=== PATIENT | male | born 1985 | race Caucasian/White ===

== ENCOUNTER 2023-11-18 19:12 | Emergency (ER) | payer MEDICAID, OTHER ==
[2023-11-17] MEDS: ONDANSETRON HCL 4MG/2ML INJ IV NR (23:00)
[2023-11-17] MEDS: PROPOFOL 200MG/20ML VIAL IV NR (23:34)
[2023-11-17] MEDS: FENTANYL CITRATE/PF 50MCG/ML 2ML VIAL IV NR (23:55)
[~2023-11-18] VITALS: Ht 185.4 cm; Wt 93.0 kg
[2023-11-18 19:21] VITALS: TEMP 98.3
[2023-11-18] MEDS ORDERED: PROPOFOL 200MG/20ML VIAL IV NR (21:45)
[2023-11-18] MEDS: FENTANYL CITRATE/PF 50MCG/ML 2ML VIAL IV ONE (21:50)
[2023-11-18] MEDS: FENTANYL CITRATE/PF 50MCG/ML 2ML VIAL IM ONE (21:51)
[2023-11-18 22:39] VITALS: O2SAT 95
[2023-11-19 02:23] VITALS: BP 145/68; PULSE 86; RESP 14
== END 2023-11-19 03:37 | disposition home or self-care (01) ==
LOC: ER 19:12
DX: S82.402A Unspecified fracture of shaft of left fibula, initial encounter for closed fracture (principal); X58.XXXA Exposure to other specified factors, initial encounter; Y93.89 Activity, other specified; Y92.89 Other specified places as the place of occurrence of the external cause; Y99.8 Other external cause status
CPT/HCPCS: 73590; 73600; 73620; 27788; 96372; 96374; 96375; 99152; 99285; J3010; J2405; J2704; Z7610